=== PATIENT | female | born 1975 | race Caucasian/White ===

== ENCOUNTER → 2017-12-23 | Outpatient (CLI) | payer BC ==
[2014-01-13 14:55] VITALS: BMI 28.4
[~2017-12-23] MED LIST: ACE3 PO; BUTA1TAB14 PO; IBU800 PO; IBUP800T37 PO; MOM PO; NIF10 PO; NIFE20CA8 PO; PREN-67 PO; TER25 PO
--- NOTE | 2017-12-24 15:47 | RADIOLOGY IMAGING REPORT ---
FACILITY: [facility] PATIENT NAME: KYRA KIM : [id number] MR: [id number] V: [id number] EXAM DATE: [id number] ORDERING PHYSICIAN: LILLI GRANADOS TECHNOLOGIST: Alessia Gaming PROCEDURE:BILATERAL DIGITAL SCREENING MAMMOGRAM WITH CAD ASSISTED INTERPRETATION & 3D TOMOSYNTHESIS COMPARISON:PRIOR MAMMOGRAMS DATED 12/08/16, 06/30/16, 12/25/15, 12/16/15 INDICATIONS:SCREENING FINDINGS: Moderately dense fibroglandular tissue is seen throughout the breasts. The parenchymal pattern has remained stable allowing for difference in mammographic technique & patient positioning. There is no evidence of malignant appearing mass, malignant appearing calcification or other secondary sign of malignancy in either breast. DIAGNOSTIC CATEGORY 1--NEGATIVE. RECOMMENDATIONS: ROUTINE MAMMOGRAM AND CLINICAL EVALUATION. IMPRESSION: BIRADS 1: Negative. No significant abnormality is seen. Dictated by: Alicia Stewart M.D. on 12/23/2017 at 16:22 Transcribed by: ALEENA on 12/24/2017 at 9:07 Approved by: Alicia Stewart M.D. on 12/24/2017 at 15:46 [facility]
== END ==
LOC: MAMO 00:31
PROVIDERS: ATTEND Obstetrics & Gynecology
DX: Z12.31 Encounter for screening mammogram for malignant neoplasm of breast (principal)
CPT/HCPCS: 77063; 77067